=== PATIENT | male | born 1980 | race Hispanic/Latino ===

== ENCOUNTER 2019-10-01 13:35 | Emergency (ER) | payer SELFPAY ==
[2019-10-01] MEDS ORDERED: TETANUS/DIPHTHERIA TOXOID [ADULT] 0.5 ML VIAL IM ONE (13:48)
[2019-10-01] MEDS ORDERED: LIDOCAINE HCL 1% 20 ML VIAL ONE (14:29)
== END 2019-10-01 15:11 | disposition home or self-care (01) ==
LOC: EDH 13:35
DX: S61.012A Laceration without foreign body of left thumb without damage to nail, initial encounter (principal); W26.0XXA Contact with knife, initial encounter; Y93.89 Activity, other specified; Y92.098 Other place in other non-institutional residence as the place of occurrence of the external cause; Y99.8 Other external cause status
CPT/HCPCS: 12001; 90471; 90714